=== PATIENT | male | born 1980 | race American Indian/Alaskan Native ===

== ENCOUNTER 2016-12-26 19:40 | Emergency (ER) | payer OTHER ==
[2016-12-26] MEDS ORDERED: NACL 0.9% IR ONE (22:37)
--- NOTE | 2016-12-26 22:46 | Emergency Department Report ---
ED Laceration HPI - HPI Chief Complaint: Wound/Laceration Stated Complaint: RIGHT HAND LACERATION Time Seen by Provider: 12/26/16 22:24 Occurred When: Today (at 1330) Location: Upper Extremity (right hand) Laceration Symptoms: Yes Pain, No Foreign Body Sensation (will xray, unknown at thsi time), No Numbness, No Weakness ED Review of Systems ROS: Stated complaint: RIGHT HAND LACERATION Other details as noted in HPI Constitutional: denies: chills, fever Eyes: denies: eye pain, eye discharge, vision change ENT: denies: ear pain, throat pain Respiratory: denies: cough, shortness of breath, wheezing Cardiovascular: denies: chest pain, palpitations Endocrine: no symptoms reported Gastrointestinal: denies: abdominal pain, nausea, diarrhea Genitourinary: denies: urgency, dysuria Musculoskeletal: other (pain, 5th digit right hand with avulsion injury). denies: back pain, joint swelling, arthralgia Skin: denies: rash, lesions Neurological: denies: headache, weakness, paresthesias Psychiatric: denies: anxiety, depression Hematological/Lymphatic: denies: easy bleeding, easy bruising ED Past Medical Hx - Past Medical History Previous Medical History?: No - Surgical History Past Surgical History?: Yes - Family History Family history: no significant - Social History Smoking Status: Current Every Day Smoker Laceration Physical Exam - Exam General: Vital signs noted. No distress. Alert and acting appropriately. 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 Accident occurred at 1330 while he was at work. he continued to work until 1900, when he sought help in the Emergency Department. Laceration Location: Upper Extremity (right 4th digit between mcp joint) Laceration Exam: Yes Normal Distal CMS, No Foreign Body, No Exposed Tendon, Vessel, or Nerve, No Tendon Injury ED Course Vital Signs 12/26/16 12/26/16 20:50 21:17 Temperature 98.2 F 98.2 F Pulse Rate 85 78 Respiratory 18 20 Rate Blood Pressure 126/80 126/80 O2 Sat by Pulse 99 100 Oximetry Critical care attestation.: If time is entered above; I have spent that time in minutes in the direct care of this critically ill patient, excluding procedure time. ED Disposition Clinical Impression: Laceration Disposition: DC-01 TO HOME OR SELFCARE Is pt being admited?: No Does the pt Need Aspirin: No Condition: Stable Instructions: Laceration (ED), Finger Laceration (ED) Additional Instructions: PLEASE KEEP THE AREA DRY AND CLEAN . Referrals: PRIMARY CARE, [Primary Care Provider] - 3-5 Days Time of Disposition: 23:13 Print Language: MAORI
[2016-12-26] MEDS ORDERED: TRIPLE ANTIBIOTIC TP ONE ×2 (22:52→23:08)
[2016-12-26 23:59] VITALS: BP 137/77
== END 2016-12-26 23:59 | disposition home or self-care (01) ==
LOC: ED 19:40
DX: S61.411A Laceration without foreign body of right hand, initial encounter (principal); X58.XXXA Exposure to other specified factors, initial encounter; Y93.9 Activity, unspecified; Y92.9 Unspecified place or not applicable; Y99.9 Unspecified external cause status
CPT/HCPCS: 99282; A6250